=== PATIENT | male | born 1975 | race Caucasian/White ===

== ENCOUNTER 2021-04-06 09:54 | Emergency (ER) | payer BC ==
[~2021-04-06] VITALS: Ht 175.3 cm; Wt 111.1 kg
[2021-04-06] MEDS ORDERED: COZAAR 50 MG TA50 M1 PO (10:07)
[2021-04-06] MEDS ORDERED: CARVEDILOL25 MG PO (10:07)
[2021-04-06] MEDS ORDERED: FLONASE 0.05%50 MCG NARES (10:08)
[2021-04-06] MEDS ORDERED: ZYRTEC10 M5 PO (10:08)
[2021-04-06] MEDS ORDERED: VITAMIN D350 MC3 PO (10:08)
[2021-04-06] MEDS ORDERED: NAPROSYN500 M1 PO (11:05)
[2021-04-06 11:24] VITALS: BP 124/68
== END 2021-04-06 11:24 | disposition home or self-care (01) ==
LOC: M.ERS 09:54
DX: S53.402A Unspecified sprain of left elbow, initial encounter (principal); I10 Essential (primary) hypertension; Z79.899 Other long term (current) drug therapy; X58.XXXA Exposure to other specified factors, initial encounter; Y93.89 Activity, other specified; Y92.89 Other specified places as the place of occurrence of the external cause; Y99.8 Other external cause status